=== PATIENT | female | born 1980 | race African-American/Black ===

== ENCOUNTER 2021-05-06 01:22 | Emergency (ER) | payer SELFPAY ==
[~2021-05-06] VITALS: Ht 167.6 cm; Wt 84.0 kg
[2021-05-06] MEDS ORDERED: NAPR-1176 MT (01:52)
[2021-05-06] MEDS ORDERED: KETOROLAC 60MG/2ML VIAL IM ONE (02:00)
[2021-05-06 02:03] VITALS: BP 123/94
== END 2021-05-06 03:15 | disposition left against medical advice (07) ==
LOC: ER 01:22
DX: M62.830 Muscle spasm of back (principal); F12.10 Cannabis abuse, uncomplicated
CPT/HCPCS: 81025; 96372; 99283; J1885

== ENCOUNTER 2021-11-29 09:31 | Emergency (ER) | payer MEDICAID ==
[~2021-11-29] VITALS: Ht 167.6 cm; Wt 69.0 kg
[~2021-11-29 09:31] MED LIST: NAPR-1176 MT
[2021-11-29 09:39] VITALS: BP 136/93
[2021-11-29] MEDS ORDERED: CEFTRIAXONE SODIUM 500 MG/VIAL IM ONE (10:00)
[2021-11-29 10:46] LABS: CLARITY URINE CLOUDY (CLEAR); COLOR URINE YELLOW (YELLOW); KETONES URINE TRACE (NEGATIVE); LEUKOCYTE ESTERASE URINE NEGATIVE (NEGATIVE); NITRITE URINE NEGATIVE (NEGATIVE); OCCULT BLOOD URINE NEGATIVE (NEGATIVE); PH URINE 5.5 (4.5-8.0); PROTEIN URINE TRACE (NEGATIVE); SPECIFIC GRAVITY URINE 1.025 (1.005-1.030); UROBILINOGEN URINE 0.2 E.U./dL (0.2-1.0)
[2021-11-29] MEDS ORDERED: DOXY-326 MT (10:53)
[2021-11-29] MEDS ORDERED: METR60GE TP (11:14)
[2021-11-30 05:08] LABS: HIV SCREEN 4G Non Reactive (Non Reactive)
== END 2021-11-29 11:18 | disposition home or self-care (01) ==
LOC: ER 09:31
DX: Z20.2 Contact with and (suspected) exposure to infections with a predominantly sexual mode of transmission (principal); F12.10 Cannabis abuse, uncomplicated; Z91.018 Allergy to other foods
CPT/HCPCS: 81003; 86592; 87389; 87591; 99283; J0696